=== PATIENT | female | born 1965 | race African-American/Black ===

== ENCOUNTER 2017-11-05 09:44 | Emergency (ER) | payer OTHER ==
[~2017-11-05] VITALS: Ht 162.6 cm; Wt 72.6 kg
[2017-11-05] MEDS ORDERED: AUGMENTIN 875-1 EAC1 ORAL (11:02)
[2017-11-05 11:07] VITALS: BP 130/97
--- NOTE | 2017-11-05 13:27 | Emergency Room Report ---
History of Present Illness General Chief Complaint: Upper Respiratory Illness Source: Patient Present Illness HPI 52-year-old female walks in with 1-2 weeks of sinus congestion, sinus pressure, headache Denies fever or chills or neck pain or stiffness Denies chest pain, shortness of breath or abdominal pain Has been taking OTC meds without improvement Not currently on antibiotics Allergies: Coded Allergies: No Known Allergies (Unverified , 11/05/17) Patient History Past Medical History: none Past Surgical History: none Pertinent Family History: none Social History: Denies: smoking, alcohol use, drug use Now: No Immunizations: UTD Reviewed Nursing Documentation: PMH: Agreed, PSxH: Agreed Nursing Documentation-PMH Past Medical History: No Stated History Review of Systems All Other Systems: negative except mentioned in HPI Physical Exam Vital Signs Date Time Temp Pulse Resp B/P (MAP) Pulse Ox O2 Delivery O2 Flow Rate FiO2 11/05/17 09:56 98.4 92 18 163/74 100 Room Air Sp02 EP Interpretation: reviewed, normal General Appearance: normal inspection, well appearing, no apparent distress, alert, GCS 15, non-toxic Head: normocephalic, atraumatic Eyes: bilateral eye PERRL, bilateral eye EOMI ENT: normal ENT inspection, hearing grossly normal, normal pharynx, no angioedema, normal voice, TMs + canals normal, uvula midline, moist mucus membranes Neck: normal inspection, full range of motion, supple, thyroid normal, no meningismus, no bony tend Respiratory: normal inspection, lungs clear, normal breath sounds, no rhonchi, no respiratory distress, no retraction, no accessory muscle use, no wheezing, speaking full sentences Cardiovascular #1: regular rate, rhythm, no edema, no JVD, normal capillary refill Gastrointestinal: normal inspection, normal bowel sounds, non tender, soft, no mass, no peritonitis, non-distended, no guarding, no hernia, no pulsatile mass Genitourinary: no CVA tenderness Musculoskeletal: normal inspection, back normal, normal range of motion, no calf tenderness, pelvis stable, Yeni's Sign negative Neurologic: normal inspection, alert, oriented x3, responsive, supervisor blasting III-XII nml as tested, motor strength/tone normal, cerebellar normal, normal gait, speech normal Psychiatric: normal inspection, judgement/insight normal, mood/affect normal, no suicidal/homicidal ideation, no delusions Skin: normal inspection, normal color, no rash Lymphatic: normal inspection, no adenopathy Medical Decision Making Diagnostic Impression: Primary Impression: Sinusitis Qualified Codes: J01.11 - Acute recurrent frontal sinusitis ER Course 52-year-old female with recurrent chronic sinusitis Vital signs stable, afebrile likely clinical sinusitis We'll treat empirically with Augmentin ER course: Patient has remained stable during ED stay. Disposition: Patient is to be discharged to home. Prescriptions given are augmentin Patient is instructed to follow up with their primary care doctor within 5 days. Strict return precautions discussed with patient such as fever, chills, worsening/severe pain, nausea, vomiting, which may indicate severe illness. Patient verbalizes understanding and agrees with plan. Please note that this Emergency Department Report was dictated using [facility] [employer] software, occasionally this can lead to erroneous entry secondary to interpretation by the dictation equipment Last Vital Signs Date Time Temp Pulse Resp B/P (MAP) Pulse Ox O2 Delivery O2 Flow Rate FiO2 11/05/17 11:07 98.5 83 18 130/97 100 Room Air Status: improved Disposition: HOME, SELF-CARE Condition: Improved Scripts Amoxicillin/Potassium Clav 875-125* (AUGMENTIN 875-125 TABLET*) 1 Each Tablet 1 TAB ORAL TWICE A DAY for 10 Days, #20 TAB Prov: ROLAN CHAMORRO M.D. 11/05/17 Patient Instructions: Sinusitis, Adult, [id number] ROLAN CHAMORRO M.D. Nov 05, 2017 13:27
== END 2017-11-05 11:08 | disposition home or self-care (01) ==
LOC: EMR 11:00
DX: J32.9 Chronic sinusitis, unspecified (principal)
CPT/HCPCS: 99283